=== PATIENT | male | born 2000 | race Two or more races ===

== ENCOUNTER 2021-03-27 11:12 | Emergency (ER) | payer SELFPAY ==
[~2021-03-27] VITALS: Ht 165.1 cm; Wt 61.4 kg
[2021-03-27 12:02] VITALS: BP 157/101
== END 2021-03-27 15:12 | disposition left against medical advice (07) ==
LOC: ER 11:13
DX: R11.10 Vomiting, unspecified (principal); Z53.21 Procedure and treatment not carried out due to patient leaving prior to being seen by health care provider